=== PATIENT | male | born 1990 | race Caucasian/White ===

== ENCOUNTER 2017-07-18 20:03 | Emergency (ER) | payer BC ==
[~2017-07-18] VITALS: Ht 167.6 cm; Wt 70.0 kg
[~2017-07-18 20:03] MED LIST: ALBU6.7H INH; DICL50 PO; DOXY100T PO
[2017-07-18 20:07] VITALS: BP 141/82; PULSE 96; RESP 16; TEMP 99.1; O2SAT 98
--- NOTE | 2017-07-19 00:12 | PD ---
HPI Chief Complaint: Anxiety Time Seen by Provider: 23:57 Travel History International Travel<30 days: No Contact w/Intl Traveler<30days: No Traveled to known affect area: No History of Present Illness HPI 27-year-old male came to the emergency room with history of significant anxiety for past few days. Patient does have history of anxiety and takes Klonopin for it. He has been getting his Klonopin from an urgent care doctor. Used to be on 2 mg a day. However recently it has been cut down to 1 mg a day. Patient is also going through a marriage separation which is adding to the stress. Patient denies any suicidal or homicidal thoughts. He is here with his mother. He denies drinking alcohol or doing any street drugs. He is awake and answering questions appropriately. Vital signs are stable. Does not have any other medical conditions. Patient does not have a psychiatrist or even a primary care doctor at this point. [facility] Past Medical History Narrative Medical List of his past medical, surgical, social and family history reviewed from the nursing note. Asthma: No Autoimmune Disease: No Blood Disorders: No Anxiety: Yes Depression: Yes Heart Rhythm Problems: No Cardiovascular Problems: No Chest Pain: No Cystic Fibrosis: No Diminished Hearing: No Gastrointestinal Disorders: Yes (REFLUX HAS HAD COLONOSCOPY AND ENDOSCOPY) Genitourinary: No Headaches: No Hypertension: No Musculoskeletal: Yes (ANKLES TWIST, ELBOWS POP AND KNEES HAS OSSGOOD SLATTERS) Neurologic: No Psychiatric: No Respiratory: No Seizures: No Sickle Cell Disease: No Sleep Apnea: No Influenza Vaccination: No Past Surgical History Abdominal Surgery: No Cardiac Surgery: No Ear Surgery: No Endocrine Surgery: No Eye Surgery: No Genitourinary Surgery: No Gynecologic Surgery: No Neurologic Surgery: No Oral Surgery: No Thoracic Surgery: No Other Surgery: Yes (AGE 5 TESTICLE SURGERY) Social History Alcohol Use: No Tobacco Use: No Substance Use: No Allergies-Medications (Allergen,Severity, Reaction): Coded Allergies: azithromycin (Unverified Allergy, Severe, Anaphylaxis, 07/18/17) Comments List of his allergies reviewed from the nursing note. Reported Meds & Prescriptions Reported Meds & Active Scripts Active Vistaril (Hydroxyzine Pamoate) 50 Mg Cap 50 Mg PO BID Voltaren (Diclofenac Sodium) 50 Mg Tabec 50 Mg PO TID FOR PAIN Proventil Hfa (Albuterol Sulfate) 6.7 Gm Aero 2 Puff INH Q4H PRN * SHAKE WELL BEFORE USE * Doxycycline Hyclate 100 mg (Doxycycline Hyclate) 100 Mg Tab 100 Mg PO BID TAKE UNTIL GONE Narrative Medication List of his home medications reviewed from the nursing note. Review of Systems Except as stated in HPI: all other systems reviewed are Neg Psychiatric: Positive: Anxiety Physical Exam Narrative GENERAL: Awake, alert, no obvious distress SKIN: Focused skin assessment warm/dry. HEAD: Atraumatic. Normocephalic. EYES: Pupils equal and round. No scleral icterus. No injection or drainage. ENT: No nasal bleeding or discharge. Mucous membranes pink and moist. NECK: Trachea midline. No JVD. CARDIOVASCULAR: Regular rate and rhythm. No murmur appreciated. RESPIRATORY: No accessory muscle use. Clear to auscultation. Breath sounds equal bilaterally. GASTROINTESTINAL: Abdomen soft, non-tender, nondistended. Hepatic and splenic margins not palpable. MUSCULOSKELETAL: No obvious deformities. No clubbing. No cyanosis. No edema. NEUROLOGICAL: Awake and alert. No obvious cranial nerve deficits. Motor grossly within normal limits. Normal speech. PSYCHIATRIC: Appropriate mood and affect; insight and judgment normal. Data Data Last Documented VS Vital Signs Date Time Temp Pulse Resp B/P (MAP) Pulse Ox O2 Delivery O2 Flow Rate FiO2 07/19/17 13:09 83 16 120/78 (92) 99 07/18/17 20:07 99.1 Room Air Orders Orders Psych Screen (07/19/17 00:19) Diet Regular Basic (07/19/17 Breakfast) MDM Medical Decision Making Medical Screen Exam Complete: Yes Emergency Medical Condition: Yes Medical Record Reviewed: Yes Differential Diagnosis Anxiety, situational anxiety Narrative Course 12:22 AM patient was given an option of going home and trying to find a psychiatrist or stay overnight and get a psych screen in the morning. Patient chose to stay and get a psych screen. He will not be [place] acted since there is no indication for that. I have ordered a psych screen. Procedures EKG Prior to Arrival: No Scripts Hydroxyzine Pamoate (Vistaril) 50 Mg Cap 50 MG PO BID for Anxiety and/or Insomnia, #30 CAP 0 Refills Prov: Enid Calloway 07/19/17 Indigo Tucker MD Jul 19, 2017 00:12
--- NOTE | 2017-07-19 12:55 | PD ---
History of Present Illness Chief Complaint: Anxiety Time Seen by Provider: 12:40 Travel History International Travel<30 Days: No Contact w/Intl Traveler<30days: No Known affected area: No Legal Status Legal Status: Voluntary History of Present Illness: History of Present Illness HPI 27-year-old, , male with reported history of anxiety who presents to the emergency room requesting a psychiatric evaluation with chief complaint with of significant anxiety for past few days. Patient is currently taking Klonopin 1 mg twice daily which was recently decreased from 2 mg twice daily. He is reporting that current dosage is not effective and that he is experiencing anxiety episodes at least twice a day and sometimes 5 times per day. He reports recent stressor of a marital separation. He is currently in the process of obtaining a psychiatrist in the area. He has an appointment with his primary care physician Dr. Schulz. Electronic medical record is reviewed. No previous contact with [facility] psychiatry Department. No labs are available for review. Patient is seen in Main ED. is at bedside. The patient is alert, oriented , casually dressed with a long facial everett. He is maintaining basic hygiene. The patient affect is appropriate and variable. Adequate amount of eye contact. Speech is normal for rate and tone. There is no evidence of any psychosis, no tao or hypomania. Mood is described as anxious. No suicidal or homicidal ideation, intent or plan. The patient is looking for an increase in the Klonopin to previous dosage. Patient already has an appointment with her primary care physician in the area. He is also advised that he needs to seek psychiatric follow-up as an outpatient. Sleeping well. Appetite is unchanged. PFSH Past Medical History Asthma: No Autoimmune Disease: No Blood Disorders: No Anxiety: Yes Depression: Yes Heart Rhythm Problems: No Cardiovascular Problems: No Chest Pain: No Cystic Fibrosis: No Diminished Hearing: No Gastrointestinal Disorders: Yes (REFLUX HAS HAD COLONOSCOPY AND ENDOSCOPY) Genitourinary: No Headaches: No Hypertension: No Musculoskeletal: Yes (ANKLES TWIST, ELBOWS POP AND KNEES HAS OSSGOOD SLATTERS) Neurologic: No Psychiatric: No Respiratory: No Seizures: No Sickle Cell Disease: No Sleep Apnea: No Influenza Vaccination: No Past Surgical History Abdominal Surgery: No Cardiac Surgery: No Ear Surgery: No Endocrine Surgery: No Eye Surgery: No Genitourinary Surgery: No Gynecologic Surgery: No Neurologic Surgery: No Oral Surgery: No Thoracic Surgery: No Other Surgery: Yes (AGE 5 TESTICLE SURGERY) Psychiatric History Psychiatric History Hx Psychiatric Treatment: Patient denies psych history. Has been prescribed Klonopin by an urgent care physician. No history of suicidal attempts. No history of self-injurious behavior. History of Inpatient Treatment: No Guns or firearms in home: No Social History for 2 years. 0 children. Currently living by himself. He works for a [employer]. Hx Alcohol Use: No Hx Tobacco Use: No Hx Substance Use: No Hx of Substance Use Treatment: No Family Psychiatric History Negative Allergies-Medications (Allergen,Severity, Reaction): Coded Allergies: azithromycin (Unverified Allergy, Severe, Anaphylaxis, 07/18/17) Reported Meds & Prescriptions Reported Meds & Active Scripts Active Voltaren (Diclofenac Sodium) 50 Mg Tabec 50 Mg PO TID FOR PAIN Proventil Hfa (Albuterol Sulfate) 6.7 Gm Aero 2 Puff INH Q4H PRN * SHAKE WELL BEFORE USE * Doxycycline Hyclate 100 Mg Tab 100 Mg PO BID TAKE UNTIL GONE Review of Systems Psychiatric: COMPLAINS OF: Anxiety Except as stated in HPI: all other systems reviewed are Neg Mental Status Examination Appearance: Appropriate (In [facility]. Maintaining basic hygiene.) Consciousness: Alert Orientation: x4 Motor Activity: Normal gait Speech: Unremarkable Language: Adequate Fund of Knowledge: Adequate Attention and Concentration: Adequate Memory: Unremarkable Mood: Appropriate, Anxious Affect: Appropriate Thought Process & Associations: Intact, Logical, Goal directed Thought Content: Appropriate Hallucination Type: None Delusion Type: None Suicidal Ideation: No Suicidal Plan: No Suicidal Intention: No Homicidal Ideation: No Homicidal Plan: No Homicidal Intention: No Insight: Adequate Judgment: Adequate MDM Medical Decision Making Medical Record Reviewed: Yes Assessment/Plan 27-year-old, , male with reported history of anxiety who presents to the emergency room requesting a psychiatric evaluation with chief complaint with of significant anxiety for past few days. Patient is currently taking Klonopin 1 mg twice daily which was recently decreased from 2 mg twice daily. He is reporting that current dosage is not effective and that he is experiencing anxiety episodes at least twice a day and sometimes 5 times per day. He reports recent stressor of a marital separation. The patient at this time does not meet criteria for inpatient psychiatric treatment. He has an appointment already scheduled with his primary care physician and will look into obtaining an appointment with a psychiatrist. He is provided a prescription for Vistaril to help him until he gets an appointment with psychiatrist. Benefits risks and side effects are discussed with the patient. Psychiatrically clear for discharge from the ED. Orders Orders Psych Screen (07/19/17 00:19) Diet Regular Basic (07/19/17 Breakfast) Results Vital Signs Date Time Temp Pulse Resp B/P (MAP) Pulse Ox O2 Delivery O2 Flow Rate FiO2 07/18/17 20:07 99.1 96 16 141/82 (101) 98 Room Air Diagnosis Primary Impression: Anxiety Psychiatrically Cleared: Yes Med/ Other Pt Specific Info: Prescription(s) given Prescriptions Hydroxyzine Pamoate (Vistaril) 50 Mg Cap 50 MG PO BID for Anxiety and/or Insomnia, #30 CAP 0 Refills Prov: Enid Calloway 07/19/17 Disposition: 01 DISCHARGE HOME Condition: Stable Enid Calloway Jul 19, 2017 12:54
[2017-07-19] MEDS ORDERED: VIST50CA PO (12:56)
[2017-07-19 13:09] VITALS: BP 120/78
== END 2017-07-19 13:12 | disposition home or self-care (01) ==
LOC: NEPD 20:03
DX: F41.9 Anxiety disorder, unspecified (principal); F32.9 Major depressive disorder, single episode, unspecified; K21.9 Gastro-esophageal reflux disease without esophagitis
CPT/HCPCS: 99283